=== PATIENT | female | born 1940 | race Caucasian/White ===

== ENCOUNTER 2023-01-02 02:41 | Emergency (ER) | payer OTHER, MEDICARE ==
[~2023-01-02] VITALS: Ht 152.4 cm; Wt 67.1 kg
[2023-01-02 02:55] VITALS: BP_SYST 140; PULSE 62; RESP 16; TEMP 97.9; O2SAT 98
[2023-01-02] MEDS ORDERED: VANCOMYCIN HCL 1,000 MG in NS 250 ML IV ONE (03:15)
[2023-01-02] MEDS ORDERED: VANCOMYCIN HCL 1000 MG/VIAL IV ONE (03:20)
[2023-01-02] MEDS ORDERED: CHLO118L TP (06:06)
[2023-01-02] MEDS ORDERED: SULF1TAB48 PO (06:06)
[2023-01-02 06:15] VITALS: BP_SYST 136; PULSE 60; RESP 20; TEMP 98.1; O2SAT 96
== END 2023-01-02 06:15 | disposition home or self-care (01) ==
LOC: SED 02:41
DX: R21 Rash and other nonspecific skin eruption (principal); B95.62 Methicillin resistant Staphylococcus aureus infection as the cause of diseases classified elsewhere; Z79.899 Other long term (current) drug therapy
CPT/HCPCS: 99284; 96365; 96366; 87040; 36415; J3370

== ENCOUNTER 2023-01-05 18:25 | Emergency (ER) | payer OTHER, MEDICARE ==
[~2023-01-05] VITALS: Ht 152.4 cm; Wt 63.5 kg
[~2023-01-05 18:25] MED LIST: CHLO118L TP; SULF1TAB48 PO
[2023-01-05 19:09] VITALS: BP_SYST 127; PULSE 60; RESP 18; TEMP 98; O2SAT 96
[2023-01-05] MEDS ORDERED: PRED20TA PO (19:58)
[2023-01-05] MEDS ORDERED: DIPH25CA83 PO (19:58)
[2023-01-05 20:21] VITALS: BP_SYST 137; PULSE 60; RESP 16; O2SAT 95
== END 2023-01-05 20:21 | disposition home or self-care (01) ==
LOC: SED 18:25
DX: R21 Rash and other nonspecific skin eruption (principal); I10 Essential (primary) hypertension; Z79.899 Other long term (current) drug therapy
CPT/HCPCS: 99283

== ENCOUNTER 2023-11-23 21:07 | Emergency (ER) | payer OTHER, MEDICARE ==
[~2023-11-23] VITALS: Ht 152.4 cm; Wt 67.1 kg
[~2023-11-23 21:07] MED LIST changes: +DIPH25CA83 PO; +PRED20TA PO
[2023-11-23 21:20] VITALS: BP_SYST 131; PULSE 98; RESP 20; TEMP 98.6; O2SAT 98
[2023-11-23 21:48] LABS: BASOPHILS % (AUTO) 0.3 % (0.0-2.0); EOSINOPHILS # (AUTO) 0.1 K/uL (0.0-0.4); EOSINOPHILS % (AUTO) 1.3 % (0.0-4.0); HEMATOCRIT 30.9 % (36-48); HEMOGLOBIN 10.7 g/dL (12.0-16.0); LYMPHOCYTES % (AUTO) 29.4 % (20.5-51.5); MEAN CORPUSCULAR HEMOGLOBIN 28 pg (27-31); MEAN CORPUSCULAR HGB CONC 35 % (32-36); MEAN CORPUSCULAR VOLUME 81 fL (79.0-98.0); MONOCYTES # (AUTO) 0.5 K/uL (0.0-1.0); MONOCYTES % (AUTO) 7.1 % (1.7-9.3); NEUTROPHILS # (AUTO) 4.2 K/uL (1.8-7.7); NEUTROPHILS % (AUTO) 61.9 % (40.0-70.0); PLATELET COUNT (AUTO) 208 K/uL (130-430); RED BLOOD CELL COUNT(AUTO) 3.81 MIL/uL (4.2-6.2); RED CELL DISTRIBUTION WIDTH 14.8 % (9.0-15.0); WHITE BLOOD COUNT (AUTO) 6.7 K/uL (4.8-10.8)
[2023-11-23 22:03] LABS: ALANINE AMINOTRANSFERASE 24 U/L (12-78); ALBUMIN 3.5 g/dL (3.4-4.8); ANION GAP 8 (5-15); ASPARTATE AMINOTRANSFERASE 21 U/L (10-37); CALCIUM 8.6 mg/dL (8.4-11.0); CARBON DIOXIDE 28 mmol/L (23-29); CHLORIDE 104 mmol/L (98-107); CREATININE 1.02 mg/dL (0.55-1.30); GLUCOSE 146 mg/dL (74-106); POTASSIUM 3.9 mmol/L (3.5-5.1); SODIUM SERUM 140 mmol/L (136-145); TOTAL BILIRUBIN 0.2 mg/dL (0.0-1.0); TOTAL PROTEIN, SERUM 6.9 g/dL (6.4-8.3); UREA NITROGEN, BLOOD 21 mg/dL (8-21)
[2023-11-23 22:05] LABS: BILIRUBIN,DIRECT 0.1 mg/dL (0.0-0.3)
[2023-11-23] MEDS: KETOROLAC TROMETHAMINE 30 MG VIAL IVP ONE (22:18)
[2023-11-24] MEDS ORDERED: TRAM50TA2 PO (00:55)
[2023-11-24 01:20] VITALS: BP_SYST 134; PULSE 74; RESP 18; TEMP 98.1; O2SAT 98
== END 2023-11-24 01:15 | disposition home or self-care (01) ==
LOC: SED 21:07
DX: S13.8XXA Sprain of joints and ligaments of other parts of neck, initial encounter (principal); R51.9 Headache, unspecified; I10 Essential (primary) hypertension; Z79.899 Other long term (current) drug therapy; Z79.2 Long term (current) use of antibiotics; W18.39XA Other fall on same level, initial encounter; Y93.89 Activity, other specified; Y92.89 Other specified places as the place of occurrence of the external cause; Y99.8 Other external cause status
CPT/HCPCS: 99285; 71250; 96374; 71045; 80076; 80048; 83880; 85025; 85379; 84484; 36415; 74176; J1885